=== PATIENT | female | born 1970 | race Caucasian/White ===

== ENCOUNTER 2022-08-18 11:39 | Outpatient (CLI) | payer OTHER | END 2022-08-18 11:48 | disposition home or self-care (01) | LOC: EDBD 11:39 → LAB 11:39 | PROVIDERS: ATTEND Radiology Diagnostic Radiology | DX: R10.11 Right upper quadrant pain (principal) ==

== ENCOUNTER 2022-08-24 09:09 | Outpatient (CLI) | payer OTHER | END 2022-08-24 09:29 | disposition home or self-care (01) | LOC: TOM 09:09 | DX: R10.11 Right upper quadrant pain (principal) ==

== ENCOUNTER 2022-11-24 09:37 | Outpatient (CLI) | payer OTHER | END 2022-11-24 09:40 | disposition home or self-care (01) | LOC: SONOGRAMA 09:37 | PROVIDERS: ATTEND Pathology Anatomic Pathology & Clinical Pathology | DX: E04.2 Nontoxic multinodular goiter (principal) ==